=== PATIENT | female | born 1970 | race Caucasian/White ===

== ENCOUNTER 2021-05-26 02:53 | Emergency (ER) | payer OTHER, SELFPAY ==
--- NOTE | ~2021-05-26 | CT_ITS ---
EXAMINATION: CT abdomen pelvis w con DATE: 05/26/2021 04:09 INDICATION: Pancreatitis post hysterectomy presenting with abdominal pain. TECHNIQUE: Computed tomography (CT) of the abdomen and pelvis was performed with 100 mL Omnipaque-350 intravenous contrast. Automated exposure control and iterative reconstruction technique were employe d. The dose-length product was 424.62 mGy-cm. COMPARISON: 10/04/2018 FINDINGS: Lung bases are clear. Heart size is normal. No pericardial or pleural effusion. Liver, gallbladder, s pleen, pancreas, bilateral adrenal glands and kidneys are normal. There is wall thickening and some a symmetric hyperemia involving several loops of the distal ileum consistent with a distal ileitis. Nor mal appendix. Mild diverticulosis along the sigmoid colon without adjacent inflammatory change to sug gest diverticulitis. Bladder is normal. The uterus is not identified and has likely been surgically r esected. 2.4 similar right adnexal cyst. Small amount of likely reactive free fluid in the pelvis. No abscess or free intraperitoneal gas. No pathologically enlarged abdominal or pelvic lymphadenopathy. Mild degenerative skeletal changes at the spine and bilateral hips. IMPRESSION: 1. Inflammatory wall thickening along several loops of distal ileum consistent with ileitis which cou ld be infectious or inflammatory in etiology with differential including Crohn's disease. Reviewed, dictated and finalized at location A. IMPRESSION: 1. Inflammatory wall thickening along several loops of distal ileum consistent with ileitis which could be infectious or inflammatory in etiology with differe ntial including Crohn's disease.
[2021-05-26 03:00] VITALS: BP 160/90; PULSE 90; RESP 20; TEMP 36.6; O2SAT 95
--- NOTE | 2021-05-26 03:09 | PC.NURSE ---
patient uncooperative with care, attempting to put in hospital gown, patient cursing at nurse not wanting to wear a gown. allowed to keep personal cloths on.
--- NOTE | 2021-05-26 03:10 | ED.ABDPAIN ---
HPI - Abdominal Pain General Chief Complaint: Abdominal Pain Stated Complaint: NAUSEA Source: patient Mode of arrival: ambulatory Limitations: no limitations History of Present Illness HPI narrative: Patient comes in with moderately severe abdominal pain, sharp, wavelike ongoing since 1:15 am. As she does have some history of drinking a couple of alcoholic drinks tonight She has had nausea tonight since 01:15 a.m. She has had no fever, no chills. Nausea has been ongoing since 1:15 a.m. this is not been relieved the measures taken at home. Pain is not been relieved by measures taken at home. MD elicited complaint: abdominal pain Onset (ago): hour(s) Pain Consistency: constant Location: epigastric Severity: moderate Quality: stabbing and sharp Radiation: epigastric Exacerbating factors: nothing Relieving factors: nothing Associated symptoms: nausea and anorexia Related Data Allergies Allergy/AdvReac Type Severity Reaction Status Date / Time Sulfa (Sulfonamide Allergy Unknown RASH, HIVES Verified 11/08/20 09:26 Antibiotics) Review of Systems Constitutional: Constitutional: Reports no additional constitutional complaints Eyes: Eyes: Reports no additional eye complaints ENT: Reports system reviewed and no additional complaints, except as documented Cardiovascular: Cardiovascular: Reports no additional cardiovascular complaints Respiratory: Respiratory: Reports no additional respiratory complaints Gastrointestinal: Gastrointestinal: Reports abdominal pain and Reports nausea Comments: abdomen swelling past few hours Genitourinary: Genitourinary: Reports no additional female genitourinary complaints Musculoskeletal: Musculoskeletal: Reports no additional musculoskeletal complaints Integumentary/Breasts: Skin/Breast: Reports system reviewed and no additional complaints, except as docu Neurologic: Reports system reviewed and no additional complaints, except as documented Psychiatric: Psychiatric: Reports no additional psychiatric complaints Endocrine: Endocrine: Reports no additional endocrine complaints Hematologic/Lymphatic: Hematologic/Lymphatic: Reports no additional hematologic/lymphatic complaints Allergic/Immunologic: Allergic/Immunologic: Reports no additional allergic/immunologic complaints PMFSH Past Medical History Medical History No significant medical problems Surgical History Surgical History H/O: hysterectomy Family History Family History Mother Hypertension Father Hypertension Social History Social History Smoking status: Current some day smoker Second hand tobacco smoke exposure: No Alcohol intake: current Alcohol use details: bottle a wine a week Substance use: current Substance use type: marijuana Gender identity (if verbalized by the patient): Female Exam Const: General: alert and ill appearing Nutritional Appearance: well nourished Orientation/consciousness: patient oriented x3 HENMT: Head: normal to inspection Ears: external ears normal and TM's normal bilaterally General nose exam: Normal external nose present and Normal nares present Mouth: Yes Normal oral and palatal mucosa present Throat: posterior oropharynx normal Eyes: Conjunctivae: conjunctivae normal Neck: Neck: normal visual inspection Chest: Chest palpation & inspection: normal inspection of the chest Resp: Effort & Inspection: normal respiratory effort Auscultation: clear to auscultation bilaterally Cardio: Rate: regular rate Rhythm: regular rhythm GI: GI Palp: Yes Soft to palpation (mild tenderness to touch in epigastric area. ) Auscultation: Hypoactive bowel sounds present : General: Yes no CVA tenderness Back/Spine/Pelvis: Back: no CVA tenderness Skin: Gener
[2021-05-26 03:17] LABS: Basophils Absolute Auto 0.03 K/mm3 (0.00-0.10); Basophils Percent Auto 0.2 % (0.0-1.0); Eosinophils Absolute Auto 0.14 K/mm3 (0.02-0.50); Eosinophils Percent Auto 0.8 % (1.0-6.0); Hematocrit 42.6 % (35.0-49.0); Hemoglobin 14.5 g/dL (12.0-15.0); Immature Granulocyte Absolute 0.06 K/mm3 (0.00-0.00); Immature Granulocyte Percent A 0.3 % (0.0-0.0); Lymphocytes Absolute Auto 1.38 K/mm3 (1.10-4.50); Lymphocytes Percent Auto 7.5 % (18.0-42.0); Mean Corpuscular Hemoglobin 31.8 pg (27.0-31.0); Mean Corpuscular Volume 93.4 fL (78.0-102.0); Mean Platelet Volume 8.9 fl (9.2-11.8); Monocytes Absolute Auto 0.88 K/mm3 (0.10-0.90); Monocytes Percent Auto 4.8 % (2.0-11.0); Neutrophils Absolute Auto 15.9 K/mm3 (1.7-7.2); Neutrophils Percent Auto 86.4 % (50.0-70.0); Platelet Count Result 280 K/mm3 (150-420); Red Blood Count 4.56 M/mm3 (4.20-5.40); Red Cell Distribution Width 11.8 % (11.6-14.4); White Blood Count 18.4 K/mm3 (4.8-10.8)
[2021-05-26] MEDS: ONDANSETRON INJ 4 MG/2 ML VIAL IV PUSH (03:22)
[2021-05-26] MEDS: KETOROLAC 30 MG/ML VIAL (*BKC) IV PUSH (03:22)
[2021-05-26 03:34] LABS: Alanine Aminotransferase 26 U/L (14-59); Albumin Level 3.9 g/dL (3.4-5.0); Alkaline Phosphatase 84 U/L (46-116); Amylase 36 U/L (25-115); Anion Gap 11 mmol/L (8-16); Aspartate Amino Transferase 10 U/L (15-37); Bilirubin,Total 0.3 mg/dL (0.00-1.00); Blood Urea Nitrogen 13 mg/dL (7-18); Calcium 8.9 mg/dL (8.5-10.1); Carbon Dioxide 28 mmol/L (21-32); Chloride 105 mmol/L (98-108); Estimated CRCL calculation 78 ml/min; Estimated Glomerular Filt Rate > 60; Glucose 117 mg/dL (70-99); Lipase 51 U/L (73-393); Osmolality Calculated 299 mOsm/kg (285-295); Potassium 4.1 mmol/L (3.5-5.1); Sodium 144 mmol/L (136-145); Total Protein 7.2 g/dL (6.4-8.2)
[2021-05-26 03:40] LABS: Lactic Acid Reflex 2.2 mmol/L (0.4-2.0)
[2021-05-26 03:59] VITALS: BP 165/85; PULSE 85; RESP 18; O2SAT 95
[2021-05-26 04:08] LABS: Add Urine Microscopic? YES; Appearance Urine Clear (Clear); Bilirubin Urine Negative (Negative); Blood Urine 2+ (Negative); Color Urine Yellow (Yellow); Glucose Urine UA Negative (Negative); Ketones Urine Negative (Negative); Leukocyte Esterase Ur Negative LEU/UL (Negative); Nitrate Urine Negative (Negative); Protein Urine Negative (Negative); Specific Grav Ur 1.025 (1.010-1.020); Urobilinogen Urine 0.2 mg/dL (0.2-1.0); pH Urine 5.5 (5.0-8.0)
[2021-05-26 04:16] LABS: WBC Urine 0-3 /hpf (0-3)
[2021-05-26 04:17] LABS: Bacteria Urine 3+ /hpf; Squamous Epithelial Cell Urine Few /hpf (Few)
[2021-05-26] MEDS: SODIUM CHLORIDE 0.9% IV 1,000 ML 500 ML IV CONT (04:56)
[2021-05-26] MEDS: DEXAMETHASONE SOD PHOS INJ 4 MG/ML VIAL 12 MG IV PUSH (05:22)
[2021-05-26] MEDS: metroNIDAZOLE 500 MG/ISO 100ML 500 MG/100 ML BAG 100 MG IVPB (05:22)
[2021-05-26] MEDS: levoFLOXacin 500 MG TABLET PO (05:39)
[2021-05-26 05:56] VITALS: BP 128/90; PULSE 90; RESP 18; TEMP 36.1; O2SAT 95
--- NOTE | 2021-05-26 05:59 | PC.NURSE ---
IV's removed intact from each arm, dressing applied
[2021-05-26 06:14] LABS: Reflex Lactic Acid Yes or No Add Lactic
== END 2021-05-26 05:57 | disposition home or self-care (01) ==
PROVIDERS: Emergency Provider Emergency Medicine
DX: K50.10 Crohn's disease of large intestine without complications (principal)
CPT/HCPCS: 36415; 74177; 80053; 81001; 82150; 83605; 83690; 85025; 96365; 96375; 99283; 99284; A9270; J1100; J1885; J2405; J7030; Q9967

== ENCOUNTER 2021-06-07 08:48 | Outpatient (CLI) | payer OTHER, SELFPAY ==
--- NOTE | ~2021-06-07 | XR_ITS ---
XR barium swallow w SBFT INDICATION: Inflammatory changes of the distal small bowel. TECHNIQUE: Serial images of the upper GI tract structures and small bowel are performed following ora l administration of barium using double contrast technique. 60 images. COMPARISON: None FINDINGS: Barium flowed readily through the esophagus without evidence of hernia or reflux. Gastric contour, mucosa and motility are normal. The duodenal bulb fills and empties regularly and has a nor mal mucosal pattern. The duodenal sweep is in normal position. The mucosal pattern of the small bow el is unremarkable with normal transit time to the colon. IMPRESSION: 1: No significant abnormality of the esophagus, upper GI tract or small bowel. Reviewed, dictated and finalized at location A.
== END 2021-06-07 08:49 | disposition home or self-care (01) ==
LOC: ANHIMG 08:49
PROVIDERS: PCP Family Medicine; Visit Provider Nurse Practitioner Family
DX: R93.3 Abnormal findings on diagnostic imaging of other parts of digestive tract (principal)
CPT/HCPCS: 74240

== ENCOUNTER 2022-04-03 05:57 | Day surgery (SDC) | payer OTHER, SELFPAY ==
--- NOTE | 2022-03-26 08:48 | SUR.PREOP ---
PRE-OPERATIVE [address] [address] 1. Report to the Surgery Center Waiting Room, the entrance is the first door on the right after passing through the automatic sliding doors, at time 0600 on date__04/03/22 . OR Time:__729 . When you arrive, you and your visitor will be screened for Covid prior to entry. A mask is required within the surgery center. 2. Patients may have clear liquids (water, carbonated beverages, clear teas, apple juice) until 3 hours prior to surgery with a maximum of 20 ounces. ? No food from midnight until time of surgery. ? Infants may have breast milk until 4 hours before surgery, formula 6 hours prior to surgery. ? Children will be allowed to drink immediately following surgery. If applicable, please bring a bottle or sippy cup to assist with drinking. Juice, water, soda, and popsicles are readily available. For infants on formula, please bring formula the day of surgery. Pacifiers are allowed. 3. Take the following medications with a SIP of water the morning of surgery: 1. none 2. 3. Medications to discontinue per physician order: 1. none date to discontinue: 4. No make-up, nail irish, hairspray, perfume, deodorant, or body powder the day of surgery. No jewelry (including any body piercings) or valuables the day of surgery. Please take a shower or bath the night before, or the morning of, surgery with an antibacterial soap. Wear comfortable, loose fitting clothing. Children are encouraged to wear pajamas. ? Jewelry must be removed prior to entering the operating room. Rings and piercings that are not removed will be cut off. The center will not accept responsibility for valuables. Please leave all valuables, including medications, at home the day of surgery. 5. When going home after surgery, a licensed newspaper delivery driver must drive you home. NO public transportation without another adult. We recommend someone to stay with you, no alcoholic beverages, driving or important decision making for 24 hours after surgery. For pediatric surgeries, we recommend two adults to accompany a child home. (Only one will be allowed into the building with the patient) 6. 1 visitor (over age of 18) will be allowed. The visitor will drop patient off and remain in car until patient is prepared for surgery. Visitor will be called to join patient. Exceptions: Adult of a pediatric patient, patients with intellectual and/or developmental disability or cognitive impairments can accompany patient through-out visit. Visitors will need to be screened prior to coming into the center. Screening will include Covid symptom question checking. Visitor must wear a mask. Visitor will remain in patient?s room for duration of stay. 7. If you or anyone in your household have experienced Covid symptoms in the past week, please notify your surgeon or surgery center at phone number below for possible testing. 8. Follow any additional instructions given by your physician. Telephone instructions given to:__Mia - patient and asked if any additional questions and then verbalized understanding. Patient advised to call surgeon office or the surgery center at [phone] if any additional questions.
--- NOTE | 2022-04-02 15:06 | P.PNAN_ITS ---
Anes - Initial Pre Proc Eval Procedure: Operation Date: 04/03/22 07:30 Proposed Procedures p Excision 2cm Back Mass - Chad Pereira DO Date/Time: 04/02/22 15:06 Surgeon: Chad Pereira DO Pre Op Diagnosis: Back Mass Patient Data Age: 51 Gender: F Height: 1.6 m Weight: Allergies Allergy/AdvReac Type Severity Reaction Status Date / Time Sulfa (Sulfonamide Allergy Unknown RASH, HIVES Verified 03/26/22 08:40 Antibiotics) Home Medications Medication Instructions Recorded Confirmed Type hydrocodone 2.5 mg-acetaminophen 1 tablet PO Q6H PRN Pain 03/14/22 04/03/22 History 325 mg tablet Patient hx anesthesia problems: none Family hx anesthesia problems: none Results Review: All pre-operative results and documents have been reviewed as part of the pre-operative evaluation. [facility] Past Medical History Medical History Abnormal CT scan Chronic neck pain Epigastric pain No significant medical problems Overweight (BMI 25.0-29.9) Tobacco abuse Surgical History Surgical History H/O: hysterectomy Hx of breast reduction, elective Family History Family History Mother Hypertension COPD (chronic obstructive pulmonary disease) Anxiety Thyroid disease Heart disease Skin cancer Father Hypertension Skin cancer Sibling Skin cancer Unknown Diabetes mellitus Social History Social History Social History: Years smoked: 30 Smoking status: Current some day smoker Tobacco type: cigarettes Second hand tobacco smoke exposure: No Additional smoking assessment comments: states she smokes when she drinks alcohol Alcohol intake: current Drinks per week: 2 Substance use: former Substance use type: marijuana Living arrangements: with family 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 @ [employer] Gender identity (if verbalized by the patient): Female Sexual Orientation (if Verbalized by the Patient): Straight or Heterosexual Spiritual care concerns: No Anes - Eval Final PreProcedure Day of Procedure 04/02/22 15:06 Patient weight: overweight Heart: regular rate and rhythm Lungs: clear to auscultation Airway: Mallampati scale class II Neurological: alert and oriented Last oral intake: >/= 8 hours ASA classification: II Emergent: no Anesthetic plan: proceed Anesthesia type and monitoring: general GIVS and standard monitoring Results Review: All pre-operative results and documents have been reviewed as part of the pre- operative evaluation. Informed Consent: The patient's anesthetic plan and its attendant risks and benefits were discussed with the patient/family/POA. Questions were solicited and answers provided to the satisfaction of the patient/family/POA.
[2022-04-03 06:34] VITALS: BP 126/87; PULSE 80; RESP 15; TEMP 36.9; O2SAT 100
[2022-04-03 06:41] VITALS: BMI 27.3
[2022-04-03] MEDS: LACTATED RINGERS 1,000 ML 30 ML IV CONT ×2 (06:44→08:01)
--- NOTE | 2022-04-03 07:21 | WPDHPUPDATE1 ---
History and Physical Update Update Date/Time: 04/03/22 07:21 History and Physical has been reviewed, including an updated exam of the patient. There are NO changes in the patient's condition. Risks, benefits, and alternatives have been discussed and questions answered. Patient agrees to proceed with procedure.
[2022-04-03] MEDS: LIDO 1%/EPINEPHRINE 1:100,000 20 ML VIAL 10 ML INFILTRATE (07:52)
[2022-04-03 08:01] VITALS: BP 108/63; PULSE 92; RESP 16; TEMP 36.9; O2SAT 100
--- NOTE | 2022-04-03 08:02 | W.PM.PROC2 ---
Procedure Note - Detailed Date of Procedure 04/03/22 Pre-op Diagnosis Back Mass Post-op Diagnosis Same Procedure Performed excision of 2 cm back mass Surgeon Chad Pereira, DO Anesthesia MAC and Local ( 1% lidocaine with epinephrine) Indications this is a 51-year-old woman who presented with a back mass. She noticed a small lump about 1 year ago but it has grown in size. She did have occasional drainage from this and would apply Prid as needed. About 1 month ago it became painful and more swollen. She did have some drainage that appeared purulence. This has now resolved but there does appear to be a cyst remaining. Discussions were made with the patient about treatment options and decision was made to proceed with excision of the 2 cm back mass. Findings 2 cm back mass was excised. This appeared to be a ruptured sebaceous cyst. The entire cyst was completely excised and sent to the lab for pathology. No other abnormalities were noted. Description of Procedure Procedure as well as risks, benefits, and alternatives were discussed with the patient. Written consent was obtained and placed in chart prior to procedure. Patient was brought back to surgical suite. She was placed in right lateral decubitus position. Time-out was done to confirm patient and procedure. IV sedation was then administered by the anesthesia department. Her back area was prepped and draped in sterile fashion using chlorhexidine prep. 1% lidocaine with epinephrine was infiltrated locally around the mass. An elliptical incision was then made around the mid back mass using a 15 blade scalpel. The mass was completely excised using the 15 blade scalpel. It was sent for pathology. The wound bed was then inspected. Hemostasis was achieved with electrocautery. No other abnormalities were noted. The skin edges were then reapproximated using 4-0 nylon vertical mattress interrupted sutures. Triple antibiotic ointment was then applied followed by 4 x 4 gauze and tape. Patient was then awakened from anesthesia and transferred to recovery. Estimated Blood Loss 2 Pathology Yes ( Back mass) Condition Stable Disposition Same day [facility] Billing Surgery - Charge Forward: Surgery Billing
--- NOTE | 2022-04-03 08:18 | WPDANESPN ---
Anes - Prog Note Post-Op Date/Time: 04/03/22 08:18 Cardiovascular status: normal Respiratory status: normal Airway patency: baseline Mental status: baseline Post-Op hydration status: normal Vital Signs: Last Vital Signs Temp 36.9 C 04/03/22 08:01 Pulse 92 04/03/22 08:01 Resp 16 04/03/22 08:01 BP 108/63 04/03/22 08:01 Pulse Ox 100 04/03/22 08:01 O2 Del Method Room Air 04/03/22 08:01 Pain Score (VAS): 0 Post-procedural complaints: none Patient Feedback: Patient satisfied with anesthetic care. Other Findings: Patient vital signs back to baseline. Patient denies nausea and vomiting. Patient's pain under control. Patient OK for discharge.
[2022-04-03 08:20] VITALS: BP 110/72; PULSE 90; RESP 18; O2SAT 100
--- NOTE | 2022-04-03 08:40 | SUR.PHASEII ---
[id number] pt states she is ready to go home. drsg intact/small amount of blood noted to mid dressing
== END 2022-04-03 08:35 | disposition home or self-care (01) ==
PROVIDERS: PCP Family Medicine; Visit Provider Surgery
PROC: (CPT 21930; principal; 2022-04-03 07:30)
DX: R22.2 Localized swelling, mass and lump, trunk (principal)
CPT/HCPCS: 21930

== ENCOUNTER 2022-04-03 09:16 | Outpatient (NON) | payer OTHER, SELFPAY | END 2022-04-03 09:17 | disposition home or self-care (01) | LOC: ANHLAB 04-04 09:17 | PROVIDERS: PCP Family Medicine; Visit Provider Surgery | DX: L72.0 Epidermal cyst (principal) | CPT/HCPCS: 88304 ==

== ENCOUNTER 2023-06-16 09:53 | Emergency (ER) | payer OTHER, SELFPAY ==
[2023-06-16 10:03] VITALS: BP 123/80; PULSE 84; RESP 16; TEMP 36.7; O2SAT 99
--- NOTE | 2023-06-16 10:06 | ED.URI ---
HPI - URI/Sore Throat General Chief Complaint: Upper Respiratory Infection Stated Complaint: Cough Time Seen by Provider: 06/16/23 10:06 Source: patient Mode of arrival: ambulatory Limitations: no limitations History of Present Illness HPI Narrative: 52 yo F presents with c/o dry cough for 1 week. Worse at night. Reports has PND. Started nasal spray yesterday. Takes daily antihistamine. No SOB. Throat scratchy related to PND but not painful. All systems reviewed and negative except as noted above. Related Data Allergies Allergy/AdvReac Type Severity Reaction Status Date / Time Sulfa (Sulfonamide Allergy Unknown RASH, HIVES Verified 12/27/22 13:58 Antibiotics) Review of Systems Review of Systems: CONSTITUTIONAL: Denies fever, chills, or sweats. EYES: Denies visual changes, redness, or discharge. ENT: Denies rhinorrhea, congestion, sore throat, or otalgia. Reports postnasal drainage CARDIOVASCULAR: Denies chest pain, palpitations, or edema. RESPIRATORY: Reports cough. Denies dyspnea. GASTROINTESTINAL: Denies abdominal pain, nausea, vomiting, or diarrhea. GENITOURINARY: Denies dysuria or hematuria. SKIN: Denies rash or itching. MUSCULOSKELETAL: Denies back pain, joint pain, or myalgia. NEUROLOGIC: Denies headache, numbness, or weakness. PSYCHIATRIC: Denies anxiety or depression. All other systems reviewed are negative, except as documented in HPI. [facility] Past Medical History Medical History Abnormal CT scan Chronic neck pain Epigastric pain No significant medical problems Overweight (BMI 25.0-29.9) Tobacco abuse Surgical History Surgical History H/O: hysterectomy Hx of breast reduction, elective Family History Family History Mother Hypertension COPD (chronic obstructive pulmonary disease) Anxiety Thyroid disease Heart disease Skin cancer Father Hypertension Skin cancer Sibling Skin cancer Unknown Diabetes mellitus Social History Social History Social History: Caffeine use: 1-1 1/2 cups coffee daily Years smoked: 30 Smoking status: Light tobacco smoker Tobacco type: cigarettes Second hand tobacco smoke exposure: No Additional smoking assessment comments: states she smokes when she drinks alcohol Alcohol intake: current Drinks per week: 2 Substance use: former Substance use type: marijuana Living arrangements: with family Occupation/Education: occupation 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 There is no relevant family history pertinent to the presenting complaint. Exam Narrative: GENERAL: This is a well-nourished, well-developed patient, in no apparent distress. HEAD: normocephalic, atraumatic. EYES: PERRL. Sclera clear/white. Vision is grossly intact. EARS: External ears normal, auditory canals clear and without drainage, TMs normal without perforation. Hearing grossly intact. NOSE: External nose normal with no obvious nasal discharge, nares without redness, no rhinorrhea. THROAT: Mucous membranes moist, mild erythema postnasal drainage NECK: Neck supple, non-tender without lymphadenopathy, masses or thyromegaly. CARDIOVASCULAR: Regular rate and rhythm without murmurs, gallops, or rubs. RESPIRATORY: Clear to auscultation. Breath sounds equal bilaterally. No wheezes, rales, or rhonchi. SKIN: warm, Dry, intact with no suspicious lesions or rash, good texture and turgor. NEURO: awake, alert, and oriented
== END 2023-06-16 10:20 | disposition home or self-care (01) ==
PROVIDERS: Emergency Provider Nurse Practitioner Family; PCP Family Medicine
DX: R09.82 Postnasal drip (principal); R05.1 Acute cough; F17.210 Nicotine dependence, cigarettes, uncomplicated
CPT/HCPCS: 99213; G0463

== ENCOUNTER 2023-07-01 09:04 | Outpatient (CLI) | payer OTHER, SELFPAY ==
--- NOTE | ~2023-07-01 | XR_ITS ---
EXAMINATION: XR chest 2V 07/01/2023 09:22 INDICATION: Productive cough for 2 months PROCEDURE: 2 view chest COMPARISON: No prior studies for comparison. FINDINGS: The lungs are clear. The cardiomediastinal silhouette is within normal limits. There are no pleural effusions. There is no pneumothorax suspected. IMPRESSION: 1: NO ACUTE CARDIOPULMONARY DISEASE. Reviewed, dictated and finalized at location L.
== END 2023-07-01 09:05 | disposition home or self-care (01) ==
PROVIDERS: PCP Family Medicine; Visit Provider Family Medicine
DX: R05.9 Cough, unspecified (principal)
CPT/HCPCS: 71046

== ENCOUNTER 2023-08-13 07:57 | Outpatient (CLI) | payer OTHER, SELFPAY ==
[2023-08-13 08:11] LABS: Basophils Absolute Auto 0.03 K/mm3 (0.00-0.10); Basophils Percent Auto 0.4 % (0.0-1.0); Eosinophils Absolute Auto 0.26 K/mm3 (0.02-0.50); Eosinophils Percent Auto 3.6 % (1.0-6.0); Hematocrit 40.8 % (35.0-49.0); Hemoglobin 13.9 g/dL (12.0-15.0); Immature Granulocyte Absolute 0.03 K/mm3 (0.00-0.00); Immature Granulocyte Percent A 0.4 % (0.0-0.0); Lymphocytes Absolute Auto 2.31 K/mm3 (1.10-4.50); Lymphocytes Percent Auto 32.2 % (18.0-42.0); Mean Corpuscular HGB Conc 34.1 g/dL (32.0-36.0); Mean Corpuscular Hemoglobin 32.7 pg (27.0-31.0); Mean Platelet Volume 8.5 fl (9.2-11.8); Neutrophils Percent Auto 56.4 % (50.0-70.0); Platelet Count Result 316 K/mm3 (150-420); Red Blood Count 4.25 M/mm3 (4.20-5.40); Red Cell Distribution Width 12.1 % (11.6-14.4); White Blood Count 7.2 K/mm3 (4.8-10.8)
[2023-08-13 08:46] LABS: Alanine Aminotransferase 22 U/L (14-59); Alkaline Phosphatase 76 U/L (46-116); Anion Gap 9 mmol/L (8-16); Aspartate Amino Transferase 14 U/L (15-37); Bilirubin,Total 0.3 mg/dL (0.00-1.00); Blood Urea Nitrogen 13 mg/dL (7-18); Calcium 9.5 mg/dL (8.5-10.1); Carbon Dioxide 28 mmol/L (21-32); Chloride 106 mmol/L (98-108); Cholesterol 220 mg/dL (0-200); Estimated Glomerular Filt Rate > 60; Glucose 100 mg/dL (70-99); HDL Direct 42 mg/dL (40-60); LDL Cholesterol Calculated 102 mg/dL (<130); Osmolality Calculated 296 mOsm/kg (285-295); Potassium 4.3 mmol/L (3.5-5.1); Sodium 143 mmol/L (136-145); Thyroid Stimulating Hormone 2.57 uIU/mL (0.36-3.74); Total Protein 7.1 g/dL (6.4-8.2); Triglycerides 382 mg/dL (0-150)
== END 2023-08-13 07:58 | disposition home or self-care (01) ==
LOC: CHSLAB 07:59
PROVIDERS: PCP Physician Assistant; Visit Provider Physician Assistant
DX: R42 Dizziness and giddiness (principal); Z72.0 Tobacco use; E66.3 Overweight; Z13.220 Encounter for screening for lipoid disorders
CPT/HCPCS: 36415; 80053; 80061; 84443; 85025

== ENCOUNTER 2024-09-23 10:44 | Outpatient (RCR) | payer OTHER, SELFPAY ==
--- NOTE | 2024-09-23 12:11 | OPREHPOC ---
Outpatient Therapy Plan of Care This is a Multidisciplinary Plan of Care that may contain components documented by all disciplines (PT, OT, and ST.) PT Problem 1 PT Problem #1 Knowledge Deficit PT Goal 1 Goal / Goal Update 1. independent and compliant with HEP Target Visit 4 PT Problem 2 PT Problem #2 Pain PT Goal 1 Goal / Goal Update 1. decrease pain at worst to 3/10 or less in the cervical spine Target Visit 8 PT Problem 3 PT Problem #3 Impaired Range of Motion PT Goal 1 Goal / Goal Update 1. improve cervical flexion and extension to 45 degrees each 2. improve bilateral cervical active side bending to 20 degrees or better each 3. improve bilateral cervical active rotation to 60 degrees or better Target Visit 8 PT Problem 4 PT Problem #4 Impaired Strength PT Goal 1 Goal / Goal Update 1. improve bilateral shoulder strength to 5/5 Target Visit 8 PT Problem 5 PT Problem #5 Impaired Functional Mobil PT Goal 1 Goal / Goal Update 1. NDI to display 30% or less functional deficits 2. patient to sit to complete work for 2 hours at a time 3. patient to report being headache free for 4 days a week or more Target Visit 8
--- NOTE | 2024-09-23 12:11 | PTOPEVAL1 ---
Assessment and note entered by [facility]T File, PT Evaluation Information Assessment Status Evaluation Diagnosis cervical disc disorder ICD-10 Condition Codes (PT) Cervicalgia M54.2 Other ICD-10 Condition Codes ( M50.020 PT) Onset 09/17/24 Subjective Information patient reports she has been having symptoms for 3 years. she reports she had a C5-7 fusion on 06/14. she reports the neck has continued to bother her since the fusion. she reports she pain down the R arm and into the middle finger periodically. she reports majority of her symptoms in the neck and head. she reports she has increased symptoms and pain with sitting. she reports her pain is constant. she reports there has been a time or two when she has turned the head too quickly and she has had increased symptoms/headaches. she reports since surgery she did do therapy at [facility] that has not helped any of her neck pain or headaches. she is having a CT scan on 10/14/24, and is consulting with pain management this friday . Reported Pain Level Pain Score 10: Self Report Assessment PT Clinical Summary mrs. poole is a 53 yo woman who presents to skilled PT services for evaluation and treatment of her neck pain. she has had a 3 level fusion of the lower cervical spine, but continues to display pain and tenderness in her muscles of the neck. she also displays decreased UE strength, cervical rom deficits, and decreased quality of life due to pain/symptoms. she would benefit from continued skilled PT to address her objective/functional deficits and progress towards a return to her prior level functional activity performance and quality of life. Plan of Care Interventions Electrical Stimulation,Hot Pack/Cold Pack,Manual Therapy,Neuro Re-education,Patient/Caregiver Educati,Therapeutic Activities,Therapeutic Exercise PT Services Indicated Yes Treatment Frequency and 2x weekly for 8 visits Duration These treatments will address the objective and functional deficits as defined above. The patient will be advanced safely and appropriately in order for the patient to progress towards his/her prior level of function. Additional exercises will be introduced and as well as a comprehensive home exercise program upon discharge, if needed, ?to ensure carryover of functional gains achieved in the clinic. This treatment plan has been reviewed and agreement upon by the patient.
--- NOTE | 2024-11-18 13:07 | PCPTNOTE ---
Wants to hold off on therapy. Pt states she is feeling good.
== END 2024-12-22 23:59 | disposition home or self-care (01) ==
LOC: CHSPT 10:44
DX: M50.020 Cervical disc disorder with myelopathy, mid-cervical region, unspecified level (principal)
CPT/HCPCS: 97014; 97110; 97140; 97161; G0283